=== PATIENT | female | born 1970 | race Caucasian/White ===

== ENCOUNTER 2017-05-04 12:51 | Emergency (ER) | payer OTHER ==
[~2017-05-04] VITALS: Wt 109.5 kg
[2017-05-04] MEDS ORDERED: SOD CHLORIDE 0.9% 1,000 ML IV STA (14:10)
--- NOTE | 2017-05-04 14:46 | ERD ---
ER Documentation Chief Complaint Date/Time DATE: 05/04/17 TIME: 14:45 Chief Complaint dizziness with no neuro def. alert and follows commands. no trauma ROS All systems reviewed and are negative except as per history of present illness. Physical Exam Vitals Vital Signs Date Time Temp Pulse Resp B/P Pulse Ox O2 Delivery O2 Flow Rate FiO2 05/04/17 12:59 98.8 97 20 122/58 98 Physical Exam Const: [] Head: Atraumatic Eyes: Normal Conjunctiva ENT: Normal External Ears, Nose and Mouth. Neck: Full range of motion..~ No meningismus. Resp: Clear to auscultation bilaterally Cardio: Regular rate and rhythm, no murmurs Abd: Soft, non tender, non distended. Normal bowel sounds Skin: No petechiae or rashes Back: No midline or flank tenderness Ext: No cyanosis, or edema Neur: Awake and alert Psych: Normal Mood and Affect Results 24 hrs Current Medications Medications (Trade) Dose Ordered Sig/Jelena Route PRN Reason Start Time Stop Time Status Last Admin Dose Admin Sodium Chloride (NS) 1,000 ml @ 1,000 mls/hr Q1H STAT IV 05/04/17 14:10 05/04/17 15:09 Procedures/MDM EKG interpretation: Normal sinus rhythm rate of 92, right axis deviation, no ST or T-wave changes concerning for acute ischemia, incomplete right bundle branch block ARCENIO ÁLVAREZ DO May 04, 2017 14:46
[2017-05-04 14:55] LABS: BASOPHILS % 0.3 % (0.0-2.0); EOSINOPHILS # 0.3 10^3/ul (0.0-0.5); EOSINOPHILS % 3.2 % (0.0-7.0); HEMATOCRIT 39.8 % (37.0-47.0); HEMOGLOBIN 12.6 g/dl (12.0-16.0); LYMPHOCYTES # 3.4 10^3/ul (0.8-2.9); LYMPHOCYTES % 32.2 % (15.0-51.0); MEAN CORPUSCULAR HEMOGLOBIN 27.6 pg (29.0-33.0); MEAN CORPUSCULAR HGB CONC 31.7 g/dl (32.0-37.0); MEAN CORPUSCULAR VOLUME 87.1 fl (82.0-101.0); MEAN PLATELET VOLUME 10.4 fl (7.4-10.4); MONOCYTE # 0.7 10^3/ul (0.3-0.9); MONOCYTES % 6.6 % (0.0-11.0); NEUTROPHIL # 6.2 10^3/ul (1.6-7.5); NEUTROPHILS % 57.5 % (39.0-77.0); PLATELET COUNT 372 10^3/UL (140-415); RED BLOOD COUNT 4.57 10^6/ul (4.20-5.40); RED CELL DISTRIBUTION WIDTH 14.6 % (11.5-14.5); WHITE BLOOD COUNT 10.7 10^3/ul (4.8-10.8)
[2017-05-04 14:57] VITALS: TEMP 98.9
[2017-05-04] MEDS ORDERED: QUET400T11 PO (15:13)
[2017-05-04] MEDS ORDERED: DULO60CA59 PO (15:14)
[2017-05-04] MEDS ORDERED: LURA80TA PO (15:15)
[2017-05-04] MEDS ORDERED: PRAZ2CAP2 PO (15:15)
[2017-05-04] MEDS ORDERED: LAMO100T PO (15:16)
[2017-05-04] MEDS ORDERED: DIPH25CA6 PO (15:17)
[2017-05-04] MEDS ORDERED: DULO30CA47 PO (15:17)
[2017-05-04] MEDS ORDERED: AMLO5TAB4 PO (15:19)
[2017-05-04] MEDS ORDERED: CLON1TAB3 PO (15:19)
[2017-05-04 15:20] LABS: ALANINE AMINOTRANSFERASE 34 IU/L (13-69); ALBUMIN 4.3 g/dl (3.3-4.9); ALBUMIN/GLOBULIN RATIO 1.13; ALKALINE PHOSPHATASE 110 IU/L (42-121); ANION GAP 14 (8-16); ASPARTATE AMINO TRANSFERASE 31 IU/L (15-46); BLOOD UREA NITROGEN 12 mg/dl (7-20); CALCIUM 9.2 mg/dl (8.4-10.2); CARBON DIOXIDE 26 mmol/L (21-31); CHLORIDE 103 mmol/L (97-110); CREATININE 0.99 mg/dl (0.44-1.00); GLUCOSE 100 mg/dl (70-220); POTASSIUM 3.6 mmol/L (3.5-5.1); SODIUM 139 mmol/L (135-144); TOTAL PROTEIN 8.1 g/dl (6.1-8.1)
[2017-05-04] MEDS ORDERED: BEN50 PO (15:20)
[2017-05-04 15:32] LABS: TROPONIN-I < 0.012 ng/ml (0.00-0.12)
[2017-05-04 16:21] LABS: ADD UMIC YES; UR ASCORBIC ACID NEGATIVE (NEGATIVE); UR BACTERIA FEW /HPF (NONE SEEN); UR BILIRUBIN (Dip) NEGATIVE (NEGATIVE); UR BLOOD (Dip) 3+ mg/dL (NEGATIVE); UR CLARITY SLIGHTLY CLOUDY (CLEAR); UR COLOR YELLOW (YELLOW); UR GLUCOSE (Dip) NEGATIVE (NEGATIVE); UR KETONES (Dip) NEGATIVE (NEGATIVE); UR LEUKOCYTE ESTERASE (Dip) NEGATIVE Leu/ul (NEGATIVE); UR NITRITE (Dip) NEGATIVE (NEGATIVE); UR RBC 57 /HPF (0-5); UR SPECIFIC GRAVITY (Dip) 1.006 (1.003-1.030); UR SQUAMOUS EPITHELIAL CELL FEW /HPF (FEW); UR TOTAL PROTEIN (Dip) NEGATIVE (NEGATIVE); UR UROBILINOGEN (Dip) NEGATIVE (NEGATIVE)
[2017-05-04 16:35] LABS: BENZODIAZEPINES Negative (NEGATIVE)
[2017-05-04 16:44] LABS: BARBITURATES Negative (NEGATIVE); CANNABINOIDS Negative (NEGATIVE); COCAINE Negative (NEGATIVE); OPIATES Negative (NEGATIVE)
[2017-05-04] MEDS ORDERED: SOD CHLORIDE 0.9% 1,000 ML IV ONE (17:00)
[2017-05-04] MEDS ORDERED: CEPH-443 PO (17:53)
[2017-05-04] MEDS ORDERED: ONDA4TAB11 PO (17:53)
[2017-05-04 19:34] VITALS: BP 125/66; PULSE 87; RESP 16
== END 2017-05-04 19:50 | disposition home or self-care (01) ==
LOC: E/R 12:51
DX: R42 Dizziness and giddiness (principal)
CPT/HCPCS: 36415; 80053; 80307; 81001; 84484; 84703; 85025; 87086; 93005; J7030; Z7502